=== PATIENT | female | born 1985 | race Two or more races ===

== ENCOUNTER 2016-12-01 07:31 | Day surgery (SDC) | payer MEDICAID ==
[2016-12-01] MEDS ORDERED: LIDOCAINE 1% 2 ML INJ ONE (07:59)
[2016-12-01] MEDS ORDERED: LR 1,000 ML IV ONE (08:26)
[2016-12-01] MEDS ORDERED: LIDOCAINE 1% 5 ML SDV ID PRN (08:26)
[2016-12-01] MEDS ORDERED: PROPOFOL/EMULSION 500 MG/50 ML BOTTLE IV ONE (09:11)
[2016-12-01] MEDS ORDERED: MIDAZOLAM 2 MG/2 ML VIAL ONE (09:11)
[2016-12-01] MEDS ORDERED: LIDOCAINE 2% 5 ML SDV ONE (09:24)
--- NOTE | 2016-12-01 10:30 | GPN ---
[f rep st] PROCEDURE NOTE PREPROCEDURE DIAGNOSIS: Hematemesis and change in bowel habits. She also has acute recurrent idiop athic pancreatitis. POSTPROCEDURE DIAGNOSIS: Gastritis and normal colonoscopy including terminal ilium. PROCEDURES: EGD with biopsies and colonoscopy. MEDICATIONS: Monitored anesthesia care. INDICATIONS: The patient is a 31-year-old female with a history of acute recurrent idiopathic pancr eatitis complicated by pseudocyst formation who is here today for recent hematemesis and change in b owel habits. She is scheduled for an upper endoscopy and colonoscopy. The risks and benefits of the procedure were discussed with the patient and consent obtained. Risks include, but not limited to, bleeding, perforation, and sedation. The patient is ASA Class II. DESCRIPTION OF PROCEDURE: The upper endoscope inserted into the esophagus, into stomach and second portion of the duodenum. The esophagus appears normal. The Z-line is located at 39 cm from the inc isors. There was no evidence of Mix esophagitis or varices. The stomach shows nodular gastriti s, particularly along the lesser curvature and incisura as well as in the antrum. Biopsies were romain en with cold biopsy forceps to evaluate for H pylori. The duodenum and second portion was normal. Biopsies were also taken with cold biopsy forceps to evaluate for celiac disease. The patient is th en repositioned and an adult colonoscope was advanced to the terminal ileum, which appeared normal. The remainder of the colon, including the appendiceal orifice, cecum, ileocecal valve, ascending co stacy, hepatic flexure, transverse colon, splenic flexure, descending colon, sigmoid colon, and retrof lexed views in the rectum were normal. IMPRESSION: 1. Nodular gastritis in the stomach. 2. Normal colonoscopy including the terminal ileum. RECOMMENDATIONS: 1. Discharge home with escort. 2. Advance diet as tolerated. 3. Start omeprazole 40 mg orally once per day for 2 months. 4. Follow up in GI clinic as previously scheduled for acute recurrent pancreatitis. Thank you for allowing me to participate in the care of patient. Please do not hesitate to call christianne king questions. /[id number]/MODL
== END 2016-12-01 11:35 | disposition home or self-care (01) ==
LOC: EEVIPCON 07:31 → FSGY 07:31
PROVIDERS: ATTEND Internal Medicine Gastroenterology
PROC: 0DB68ZX Excision of Stomach, Via Natural or Artificial Opening Endoscopic, Diagnostic (ICD-10-PCS; principal; 2016-12-01 08:30)
PROC: 0DB98ZX Excision of Duodenum, Via Natural or Artificial Opening Endoscopic, Diagnostic (ICD-10-PCS; principal; 2016-12-01 08:30)
DX: R19.4 Change in bowel habit (principal); R10.9 Unspecified abdominal pain; K29.70 Gastritis, unspecified, without bleeding; K92.0 Hematemesis; Z87.19 Personal history of other diseases of the digestive system
CPT/HCPCS: J2250; J2704